=== PATIENT | female | born 1970 | race Caucasian/White ===

== ENCOUNTER 2016-12-05 13:49 | Emergency (ER) | payer MEDICAID ==
[~2016-12-05] VITALS: Ht 170.2 cm; Wt 92.1 kg
[~2016-12-05 13:49] MED LIST: HYDROMORPHONE2 MG PO; LYRICA50 MG PO; MORPHINE SULFAT30 M3 PO; MORPHINE SULFAT30 M4 PO; MOTRIN 400MG.400 MG PO; MS CONTIN 100M100 MG PO; PERCOCET 325 MG1 TA3 PO; PERCOCET1 TA1 PO; VALIUM 5MG TABLE5 MG PO; VALIUM5 MG PO
--- OUTSIDE RECORDS SUMMARY | 2016-12-05 13:54 | External Medical Summary Rpt ---
Author Author , Organization [employer] Address Unknown Phone Unavailable Purpose Continuity of Care Document - through 2016
--- OUTSIDE RECORDS SUMMARY | 2016-12-05 13:55 | External Medical Summary Rpt ---
Author Author [employer] Mosley, [employer] Organization [employer] Address Unknown Phone Unavailable
--- OUTSIDE RECORDS SUMMARY | 2016-12-05 13:55 | External Medical Summary Rpt ---
Author Author [employer] Organization [employer] Address Unknown Phone Unavailable Purpose Continuity of Care Document - through 2016
--- OUTSIDE RECORDS SUMMARY | 2016-12-05 13:55 | External Medical Summary Rpt ---
Demographics Preferred Language Austrian Marital Status Unknown Jainism Affiliation Unknown Race Unknown Ethnic Group Unknown Author Author , Organization [employer] Address Unknown Phone Unavailable Purpose Continuity of Care Document - through 2016 Immunization No patient found.
--- OUTSIDE RECORDS SUMMARY | 2016-12-05 13:55 | External Medical Summary Rpt ---
Demographics Preferred Language Russian Marital Status Unknown Yazdanism Affiliation Unknown Race Unknown Ethnic Group Unknown Author Author , Organization [employer] Address Unknown Phone Unavailable Purpose Continuity of Care Document - through 2016 Immunization No patient found.
[2016-12-05] MEDS ORDERED: LISINOPRIL 10MG10 MG PO (14:04)
[2016-12-05] MEDS ORDERED: AUGMENTIN 875-1 EACH PO (14:45)
[2016-12-05] MEDS ORDERED: PERCOGESIC EXTR1 TAB PO (14:46)
--- NOTE | 2016-12-05 14:46 | Urgent Treatment Center Report ---
History of Present Issue Date/Time Seen by Provider 12/05/16 1400 Visit Reason Pt arrived:Walked Presenting Problem:PT STATES L EAR AND JAW PAIN FOR TWO AND A HALF WEEKS. STATES BEING SEEN BY PCP ON MONDAY AND WAS GIVEN STEROID INJECTION, ANTIBIOTIC INJECTION AND ZPACK. STATES COMPLETING ZPACK. STATES SORE THROAT IS GONE BUT EAR PAIN CONTINUES AND HAS GOTTEN WORSE. STATES USING IBUPROFEN AND NAPROXEN WITH NO RELIEF Location if Accident: Onset of symptoms date/time:/ or onset unknown for:MEDICAL HX UNKNOWN Have you (or family members/close friends) recently traveled outside the [place]? N If Yes, where/when: Have you had exposure to infectious disease within the past month? TB? Other? Specify: Patient state that she recently completed round of antibiotics. States that she is still having pain and swelling at her left jaw area and into her ear. States that it appears to be more swollen now and she got worried so she thought she better come in and get checked ALLERGIES Coded Allergies: prednisone (JOINT PAIN 01/29/16) Home Medications Reported Medications LISINOPRIL (Lisinopril) 10 MG PO DAILY History Medical History General CAD? No Angina: No [place]: No Hypertension? Yes Hyperlipidemia? No CHF? No DVT? No PE? No COPD? No Asthma? No Anemia? No GERD? No Gastric ulcers? No GI Bleed? No Hernia? No Thyroid Problems? No Hypothyroidism? No CVA? No Seizures? No Diabetes? No Insulin Dependent: No Insulin Pump: No Home FSBS? No Renal Insuffiency? No UTI? No Stones? No BPH? No GB Disease: No Nephritic Syndrome? No Asplenia? No Hepatitis? No Sickle Cell Disease? No Arthritis? No Migraines? Yes Cataracts? No Glaucoma? No MRSA? No HIV? No TB? No Anxiety? Yes Depression? No Cancer? No More? 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 Family History Family HX Diabetes No CAD No Hypertension No Hyperlipidemia No Cancer No TB No Social History Smoking Hx Smoker: Current Every Day Smoker Tobacco: Yes Type Cigarettes Packs/day < 1 Pack Alcohol Alcohol: No Review of Systems All Other Systems Reviewed and Negative Comment Pain and swelling to the left side of her face/jaw area just below her left ear Physical Exam Vital Signs Vital Signs Date Time Temp Pulse Resp B/P Pulse O2 O2 Flow FiO2 Ox Delivery Rate 12/05 1359 98.1 75 18 171/100 97 General Appearance normal appearance, WD/WN, no apparent distress Ear, Nose, Throat Swelling noted under ear and jaw area tenderness noted around parotid gland and swelling observed Respiratory Status Yes: trachea midline, chest symmetrical, non tender chest. No: respiratory distress. 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 No Departure Departure Time of Disposition 1435 Disposition DC Home or Self Care(routine) Clinical Impression Primary Impression: Parotitis Condition STABLE Referrals Devan ENGEL,Cliff Avila (Family): 3 Days-Call Office if no improvement in symptoms Patient Instructions DI for Parotitis-Adult Additional Instructions Brushing your teeth frequently during the day and practicing good oral hygiene Drinking extra fluids Eating soft foods Gargling with warm salt water Refraining from smoking or other tobacco use Suck on sour lemon candy will help to express the gland and help with swelling Use warm compresses on the face will also help with pain and swelling Discharge Counseling Counseled pt/family regarding diagnosis, medications/RX, home care, follow up needs Prescriptions Current Visit Scripts Amoxicillin/Potassium Clav (Augmentin 875-125 Tablet) 1 EACH PO BID #20 TAB ACETAMINOPHEN/DIPHENHYDRAMINE (Percogesic Extra Str Caplet) 1 TAB PO Q6HP PRN pain #15 TAB at 1446
--- NOTE | 2016-12-05 14:46 | Urgent Treatment Center Report ---
History of Present Issue Date/Time Seen by Provider 12/05/16 1400 Visit Reason Pt arrived:Walked Presenting Problem:PT STATES L EAR AND JAW PAIN FOR TWO AND A HALF WEEKS. STATES BEING SEEN BY PCP ON MONDAY AND WAS GIVEN STEROID INJECTION, ANTIBIOTIC INJECTION AND ZPACK. STATES COMPLETING ZPACK. STATES SORE THROAT IS GONE BUT EAR PAIN CONTINUES AND HAS GOTTEN WORSE. STATES USING IBUPROFEN AND NAPROXEN WITH NO RELIEF Location if Accident: Onset of symptoms date/time:/ or onset unknown for:MEDICAL HX UNKNOWN Have you (or family members/close friends) recently traveled outside the [place]? N If Yes, where/when: Have you had exposure to infectious disease within the past month? TB? Other? Specify: Patient state that she recently completed round of antibiotics. States that she is still having pain and swelling at her left jaw area and into her ear. States that it appears to be more swollen now and she got worried so she thought she better come in and get checked ALLERGIES Coded Allergies: prednisone (JOINT PAIN 01/29/16) Home Medications Reported Medications LISINOPRIL (Lisinopril) 10 MG PO DAILY History Medical History General CAD? No Angina: No [place]: No Hypertension? Yes Hyperlipidemia? No CHF? No DVT? No PE? No COPD? No Asthma? No Anemia? No GERD? No Gastric ulcers? No GI Bleed? No Hernia? No Thyroid Problems? No Hypothyroidism? No CVA? No Seizures? No Diabetes? No Insulin Dependent: No Insulin Pump: No Home FSBS? No Renal Insuffiency? No UTI? No Stones? No BPH? No GB Disease: No Nephritic Syndrome? No Asplenia? No Hepatitis? No Sickle Cell Disease? No Arthritis? No Migraines? Yes Cataracts? No Glaucoma? No MRSA? No HIV? No TB? No Anxiety? Yes Depression? No Cancer? No More? 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 Family History Family HX Diabetes No CAD No Hypertension No Hyperlipidemia No Cancer No TB No Social History Smoking Hx Smoker: Current Every Day Smoker Tobacco: Yes Type Cigarettes Packs/day < 1 Pack Alcohol Alcohol: No Review of Systems All Other Systems Reviewed and Negative Comment Pain and swelling to the left side of her face/jaw area just below her left ear Physical Exam Vital Signs Vital Signs Date Time Temp Pulse Resp B/P Pulse O2 O2 Flow FiO2 Ox Delivery Rate 12/05 1359 98.1 75 18 171/100 97 General Appearance normal appearance, WD/WN, no apparent distress Ear, Nose, Throat Swelling noted under ear and jaw area tenderness noted around parotid gland and swelling observed Respiratory Status Yes: trachea midline, chest symmetrical, non tender chest. No: respiratory distress. 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 No Departure Departure Time of Disposition 1435 Disposition DC Home or Self Care(routine) Clinical Impression Primary Impression: Parotitis Condition STABLE Referrals Devan ENGEL,Cliff Avila (Family): 3 Days-Call Office if no improvement in symptoms Patient Instructions DI for Parotitis-Adult Additional Instructions Brushing your teeth frequently during the day and practicing good oral hygiene Drinking extra fluids Eating soft foods Gargling with warm salt water Refraining from smoking or other tobacco use Suck on sour lemon candy will help to express the gland and help with swelling Use warm compresses on the face will also help with pain and swelling Discharge Counseling Counseled pt/family regarding diagnosis, medications/RX, home care, follow up needs Prescriptions Current Visit Scripts Amoxicillin/Potassium Clav (Augmentin 875-125 Tablet) 1 EACH PO BID #20 TAB ACETAMINOPHEN/DIPHENHYDRAMINE (Percogesic Extra Str Caplet) 1 TAB PO Q6HP PRN pain #15 TAB at 1446
[2016-12-05 14:49] VITALS: BP 171/100
== END 2016-12-05 14:49 | disposition home or self-care (01) ==
LOC: UTC 13:49
DX: K11.21 Acute sialoadenitis (principal)

== ENCOUNTER → 2017-02-24 | Outpatient (CLI) | payer MEDICAID ==
[~2017-02-24] MED LIST changes: +AUGMENTIN 875-1 EACH PO; +LISINOPRIL 10MG10 MG PO; +PERCOGESIC EXTR1 TAB PO
--- NOTE | 2017-02-24 15:47 | RADIOLOGY REPORT PS360 ---
MRI-C-SPINE W/O HISTORY: NECK PAIN ORDERING PHYSICIAN: Cliff Hartman MD PATIENT AGE: 46 years COMPARISON: None TECHNIQUE: Standard multiplanar multiecho sequences are performed without contrast. 3-D MIP and myelographic images are also rendered and reviewed FINDINGS: IMPRESSION:
== END ==
LOC: RAD 10:30
DX: M54.2 Cervicalgia (principal)

== ENCOUNTER → 2017-03-14 | Outpatient (CLI) | payer MEDICAID | LOC: RT 07:34 | DX: D49.7 Neoplasm of unspecified behavior of endocrine glands and other parts of nervous system (principal); R20.9 Unspecified disturbances of skin sensation; R20.2 Paresthesia of skin ==

== ENCOUNTER → 2017-03-22 | Outpatient (CLI) | payer MEDICAID ==
--- NOTE | 2017-03-22 10:02 | RADIOLOGY REPORT PS360 ---
MRA-NECK W/O CLINICAL INDICATION: NEOPLASM OF UNSPECIFIED BEHAVIOR, FACIAL PARESTHESIA ORDERING PHYSICIAN: VANESSA HERNANDEZ PATIENT AGE: 46 years COMPARISON: MRI of the brain 01/25/2017 TECHNIQUE: Ssib-be-ldzqee images obtained without contrast with 3-D reformats. FINDINGS: The carotid arteries have an unremarkable appearance. No evidence of stenosis or occlusion. Vertebral arteries are patent bilaterally. No aneurysm apparent. IMPRESSION: Negative MRA of the neck.
--- NOTE | 2017-03-22 10:04 | RADIOLOGY REPORT PS360 ---
MRA-HEAD W/O CLINICAL INDICATION: Facial numbness with headache and syncope, tingling in the left arm NEOPLASM OF UNSPECIFIED BEHAVIOR, FACIAL PARESTHESIA ORDERING PHYSICIAN: VANESSA HERNANDEZ PATIENT AGE: 46 years TECHNIQUE: Unenhanced 3-D [id number]-[id number] images are obtained with MIP reformats COMPARISON: None FINDINGS: No aneurysm, arteriovenous malformation, or major intracranial occlusive process evident. The vessels of the [place] are patent. IMPRESSION: Negative MRA of the brain
--- NOTE | 2017-03-22 10:04 | RADIOLOGY REPORT PS360 ---
MRA-HEAD W/O CLINICAL INDICATION: Facial numbness with headache and syncope, tingling in the left arm NEOPLASM OF UNSPECIFIED BEHAVIOR, FACIAL PARESTHESIA ORDERING PHYSICIAN: VANESSA HERNANDEZ PATIENT AGE: 46 years TECHNIQUE: Unenhanced 3-D xbga-ax-yqjrsn images are obtained with MIP reformats COMPARISON: None FINDINGS: No aneurysm, arteriovenous malformation, or major intracranial occlusive process evident. The vessels of the [place] are patent. IMPRESSION: Negative MRA of the brain
--- NOTE | 2017-03-23 07:07 | RADIOLOGY REPORT PS360 ---
MRI-BRAIN W/WO HISTORY: Facial numbness, headache, left-sided head and neck tingling and tingling in the left arm with syncope. Follow-up abnormal MRI with pituitary lesion NEOPLASM OF UNSPECIFIED BEHAVIOR, FACIAL PARESTHESIA ORDERING PHYSICIAN: VANESSA HERNANDEZ PATIENT AGE: 46 years COMPARISON: None TECHNIQUE: Standard multiplanar multiecho sequences are performed without and with contrast. Dynamic thin section post enhanced coronal and axial images are obtained of the pituitary. FINDINGS: No midline shift, mass effect, intracranial hemorrhage, or hydrocephalus. Abnormality noted on the pituitary gland on the recent exam represents partial volume averaging from a concavity in the superior aspect of the pituitary gland. A pituitary lesion is not identified. No evidence of acute infarction. No abnormal white matter signal intensity. No enhancing lesions are evident. There is mild cerebellar tonsillar ectopia of approximately 3 mm. This is better demonstrated on today's thin section sagittal images IMPRESSION: 1. No pituitary lesion apparent. The abnormality noted on the recent MRI reflects partial volume averaging artifact from concavity along the superior margin of the pituitary gland 2. 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
== END ==
LOC: RAD 08:00
DX: D49.7 Neoplasm of unspecified behavior of endocrine glands and other parts of nervous system (principal); R20.9 Unspecified disturbances of skin sensation; R20.2 Paresthesia of skin
CPT/HCPCS: A9576